=== PATIENT | female | born 1990 | race Caucasian/White ===

== ENCOUNTER → 2022-01-31 09:45 | Outpatient (BNVA) | payer BC, SELFPAY | PROVIDERS: Visit Provider Family Medicine Adult Medicine | DX: E66.9 Obesity, unspecified (principal); Z78.9 Other specified health status; Z86.39 Personal history of other endocrine, nutritional and metabolic disease | CPT/HCPCS: 80053; 84443; 85025 ==

== ENCOUNTER → 2022-03-21 13:26 | Outpatient (BNVA) | payer BC, SELFPAY | PROVIDERS: PCP Family Medicine Adult Medicine; Referring Provider Family Medicine Adult Medicine; Visit Provider Obstetrics & Gynecology | DX: Z01.419 Encounter for gynecological examination (general) (routine) without abnormal findings (principal) | CPT/HCPCS: 81025; 87624 ==